=== PATIENT | female | born 1985 | race Caucasian/White ===

== ENCOUNTER 2023-03-08 16:20 | Outpatient (CLI) | payer OTHER, SELFPAY ==
[2023-03-08] VITALS (14 sets, daily range): BP systolic 134–202; BP diastolic 80–123; PULSE 75–95; RESP 16–18; BMI 42.5
--- NOTE | 2023-03-08 16:34 | USR_ITS ---
PROCEDURE INFORMATION: Exam: US Biophysical Profile Without Non-Stress Test Exam date and time: 03/08/2023 4:48 PM Age: 37 years old Clinical indication: Condition or disease; Other: Maternal HTN; ; Additional info: Hypertension, diabetes, and ama TECHNIQUE: Imaging protocol: US biophysical profile without non-stress testing. COMPARISON: No relevant prior studies available. FINDINGS: heart rate: 133 bpm Amniotic fluid index: VALENTINA is 14.73 cm. BIOPHYSICAL PROFILE: breathing movement (BPP): 2 out of 2. body movement (BPP): 2 out of 2. tone (BPP): 2 out of 2. Amniotic fluid (BPP): 2 out of 2. MATERNAL ANATOMY: Cervix: Cervical length measures 3.49 cm. US/US OB BPP wo NST 23392 IMPRESSION: Biophysical profile total is 8 out of 8
[2023-03-08] MEDS: NIFEdipine 10 mg Capsule PO (17:51)
[2023-03-08 17:54] LABS: Protein Urine Trace (Negative); Specific Gravity, Urine 1.025 (1.005-1.030); Urine Appearance Clear (CLEAR); Urine Color Yellow (Yellow); pH Urine 6.5 (5-7)
[2023-03-08 17:54] LABS: Basophils # 0.1 10^3/uL (0.0-0.1); Basophils % 0.6 %; Eosinophils # 0.1 10^3/uL (0.0-0.8); Eosinophils % 1.4 %; Hematocrit 38.9 % (36-47); Lymphocytes # 2.2 10^3/uL (0.8-4.8); Lymphocytes % 22.2 %; Mean Corpuscular HGB Conc 33.2 g/dL (30-55); Mean Corpuscular Hemoglobin 30.2 pg (27-33); Mean Corpuscular Volume 91.1 fl (85-98); Mean Platelet Volume 10.1 fL (7.4-10.4); Monocytes # 0.8 10^3/uL (0.2-0.9); Monocytes % 7.9 %; Neutrophils % 67.4 %; Nucleated Red Blood Cells % 0 %; Platelet Count 362 10^3/cmm (157-399); Red Blood Count 4.27 10^6/uL (3.85-5.65); Red Cell Distribution Width 14.3 % (12.1-15.1); White Blood Count 9.95 10^3/uL (3.29-11.43)
[2023-03-08 17:55] LABS: Add Urine Microscopic? YES; Bilirubin Urine Neg (Negative); Blood Urine Neg (Negative); Glucose Urine UA Norm (Normal); Ketones Urine Negative (Negative); Leukocyte Esterase Urine Negative (Negative); Nitrate Urine Negative (Negative); Urobilinogen Urine Norm (Negative)
[2023-03-08 18:04] LABS: Add Urine Culture? No; Amorphous Sediment Urine TRACE /hpf; Bacteria Urine TRACE /hpf; Fine Granular Casts Urine 0-4 /lpf; Hyaline Casts Urine 0-4 /lpf; Mucus Urine 1+ /hpf; RBC Urine RARE /hpf (0-2); Squamous Epithelial Cell Urine 0-4 /hpf (0-5); Transitional Epi Cells Urine 0-4 /hpf; WBC Urine 0-4 /hpf (0-5)
[2023-03-08 18:13] LABS: Alanine Aminotransferase 33 U/L (0-33); Albumin Level 3.5 g/dL (3.5-5.2); Alkaline Phosphatase 257 U/L (35-105); Anion Gap 15.3 (5-19); Aspartate Amino Transferase 28 U/L (0-32); Blood Urea Nitrogen 12 mg/dL (6-20); Calcium 11.2 mg/dL (8.5-10.5); Carbon Dioxide 21 mmol/L (22-29); Chloride 104 mmol/L (98-107); Globulin 3.2 g/dL (1.3-4.6); Glomerular Filtration Rate 138.1 mL/min (90-130); Glucose 73 mg/dL (65-115); Osmolality Calculated 280 mOsm/kg (285-295); Potassium 4.3 mmol/L (3.5-5.1); Sodium 136 mmol/L (136-145); Total Bilirubin 0.2 mg/dL (0.15-1.2); Total Protein 6.7 g/dL (6.6-8.7); Uric Acid 5.8 mg/dL (2.4-5.7)
[2023-03-08 18:14] LABS: UPRO/UCREAT Ratio 0.17 mg/mg CR; Urine Creatinine 120 mg/dL (28-217); Urine Protein Random 20 mg/dL
[2023-03-08] MEDS: NIFEdipine 10 mg Capsule 20 MG PO (18:37)
[2023-03-08] MEDS: labetalol 200 mg Tablet 300 MG PO (20:15)
== END 2023-03-08 20:22 | disposition home or self-care (01) ==
LOC: OPOB 16:27 → OBGYN 16:28
PROVIDERS: Family Provider Family Medicine; Visit Provider Family Medicine
DX: O16.9 Unspecified maternal hypertension, unspecified trimester (principal); O24.419 Gestational diabetes mellitus in pregnancy, unspecified control; O09.529 Supervision of elderly multigravida, unspecified trimester; Z3A.00 Weeks of gestation of pregnancy not specified
CPT/HCPCS: 36415; 59025; 76819; 80053; 81001; 82570; 84156; 84550; 85025; 99211

== ENCOUNTER 2023-03-20 16:40 | Outpatient (CLI) | payer OTHER, SELFPAY ==
[2023-03-20 16:40] VITALS: BMI 44.2
[2023-03-20 16:54] VITALS: BP 182/105; PULSE 84
[2023-03-20 17:07] VITALS: BP 172/113; PULSE 79
[2023-03-20 17:16] VITALS: BP 174/115; PULSE 80
[2023-03-20 17:37] VITALS: BP 158/96; PULSE 76
[2023-03-20 17:51] VITALS: BP 159/98; PULSE 78
[2023-03-20 18:00] LABS: Urine Creatinine 103 mg/dL (28-217)
[2023-03-20 18:03] LABS: Urine Protein Random 21 mg/dL
[2023-03-20 18:19] VITALS: BP 159/98; PULSE 78
== END 2023-03-20 18:20 | disposition home or self-care (01) ==
LOC: OPOB 16:45 → OBGYN 16:45
PROVIDERS: Absent Provider Family Medicine; Family Provider Family Medicine; Visit Provider Family Medicine
DX: O16.9 Unspecified maternal hypertension, unspecified trimester (principal); O24.419 Gestational diabetes mellitus in pregnancy, unspecified control; Z3A.00 Weeks of gestation of pregnancy not specified
CPT/HCPCS: 59025; 82570; 84156; 99211

== ENCOUNTER 2023-04-01 16:26 | Outpatient (CLI) | payer MEDICAID, SELFPAY ==
[2023-04-01] VITALS (34 sets, daily range): BP systolic 141–194; BP diastolic 85–118; PULSE 76–95; RESP 16; TEMP 36.2; O2SAT 96–98; BMI 44.1
[2023-04-01 17:02] LABS: Basophils # 0.1 10^3/uL (0.0-0.1); Basophils % 0.7 %; Eosinophils # 0.2 10^3/uL (0.0-0.8); Eosinophils % 2.1 %; Hematocrit 38.4 % (36-47); Lymphocytes # 1.9 10^3/uL (0.8-4.8); Lymphocytes % 20.8 %; Mean Corpuscular HGB Conc 33.6 g/dL (30-55); Mean Corpuscular Hemoglobin 30.8 pg (27-33); Mean Corpuscular Volume 91.6 fl (85-98); Mean Platelet Volume 10.4 fL (7.4-10.4); Monocytes # 0.8 10^3/uL (0.2-0.9); Monocytes % 8.6 %; Neutrophils # 6.12 10^3/uL (1.8-7.7); Neutrophils % 67.4 %; Nucleated Red Blood Cells % 0 %; Platelet Count 295 10^3/cmm (157-399); Red Blood Count 4.19 10^6/uL (3.85-5.65); Red Cell Distribution Width 14.6 % (12.1-15.1); White Blood Count 9.08 10^3/uL (3.29-11.43)
[2023-04-01] MEDS: NIFEdipine 10 mg Capsule PO ×3 (17:05→18:49)
[2023-04-01 17:10] LABS: Urine Appearance Clear (CLEAR); Urine Color Yellow (Yellow); pH Urine 6 (5-7)
[2023-04-01 17:11] LABS: Add Urine Culture? No; Bacteria Urine TRACE /hpf; Bilirubin Urine Neg (Negative); Blood Urine Neg (Negative); Glucose Urine UA Norm (Normal); Ketones Urine 1+ (Negative); Leukocyte Esterase Urine Negative (Negative); Nitrate Urine Negative (Negative); Protein Urine 1+ (Negative); Squamous Epithelial Cell Urine RARE /hpf (0-5); Urobilinogen Urine Norm (Negative); WBC Urine 0-4 /hpf (0-5)
[2023-04-01 17:15] LABS: Chloride 106 mmol/L (98-107); Potassium 4.7 mmol/L (3.5-5.1); Sodium 136 mmol/L (136-145)
[2023-04-01 17:25] LABS: Urine Creatinine 113 mg/dL (28-217)
[2023-04-01 17:26] LABS: UPRO/UCREAT Ratio 0.52 mg/mg CR; Urine Protein Random 59 mg/dL
[2023-04-01 17:31] LABS: Alanine Aminotransferase 29 U/L (0-33); Albumin Level 3.2 g/dL (3.5-5.2); Alkaline Phosphatase 359 U/L (35-105); Uric Acid 6.3 mg/dL (2.4-5.7)
[2023-04-01 17:44] LABS: Anion Gap 16.7 (5-19); Aspartate Amino Transferase 26 U/L (0-32); Blood Urea Nitrogen 14 mg/dL (6-20); Carbon Dioxide 18 mmol/L (22-29); Globulin 3.1 g/dL (1.3-4.6); Glomerular Filtration Rate 138.1 mL/min (90-130); Glucose 87 mg/dL (65-115); Osmolality Calculated 282 mOsm/kg (285-295); Total Bilirubin 0.2 mg/dL (0.15-1.2); Total Protein 6.3 g/dL (6.6-8.7)
[2023-04-01] MEDS: labetalol 5 mg/mL SDV 20mL 20 MG IVP (19:31)
[2023-04-01] MEDS: labetalol 200 mg Tablet 300 MG PO (20:34)
[2023-04-01] MEDS: acetaminophen 500 mg Tablet 1000 MG PO (20:34)
--- NOTE | 2023-04-01 21:01 | PM.OBGYDC ---
Discharge Providers PEDIATRIC ASSOCIATE Date of Discharge: 04/01/23 Attending Provider at Discharge: Otto Alcaraz MD Primary Care Provider: JARAD Provider Diagnoses at Discharge Discharge Diagnosis (1) Chronic hypertension affecting : Status: Acute (2) Pre-existing diabetes mellitus affecting in third trimester, antepartum: Status: Acute (3) Pre-eclampsia added to pre-existing hypertension: Status: Acute Reason for Visit Reason for Visit: High Blood Pressure Hospital Course Hospital Course This is a 38-year-old G3, P1 presents at 36 weeks 2 days with elevated blood pressure. Patient had blood pressure in the severe range on arrival. Patient denies any symptoms at that time. Initial heart tones were category 1. Patient has known chronic hypertension as well as pre-existing type 2 diabetes. Patient's blood sugars have been well-controlled. Pressures have been within the normal range until this evening. Lab work was obtained and was unremarkable except for an elevation in her protein. Patient was given 2 doses of Procardia and 1 dose of labetalol for her blood pressure was back within normal range. The patient was given 400 mg of labetalol which is an increase from her normal of 300mg twice daily. Discussed diagnosis of superimposed preeclampsia on chronic hypertension and when to seek care. We moved her date to April 06 at 7 AM. Physical Exam Const: COMMON NORMALS: no acute distress and alert HENMT: COMMON NORMALS: normocephalic and moist oral mucous membranes HEAD & SCALP: normocephalic Neck/C-Spine: COMMON NORMALS: full ROM, supple and no JVD Resp: COMMON NORMALS: normal respiratory effort Cardio: COMMON NORMALS: no JVD, regular rate and regular rhythm RATE: regular rate RHYTHM: regular rhythm Extremity: COMMON NORMALS: normal to inspection and no clubbing, cyanosis or edema Neuro: SENSORIUM/ORIENTATION: Yes alert Psych: COMMON NORMALS: mental status grossly normal and cooperative History History History 3 Term 1 0 Miscarriages/Ectopic 1 Living Children 1 Discharge Data Studies Completed and Pending Laboratory Results WBC 9.08 10^3/uL (3.29-11.43) 04/01/23 16:54 RBC 4.19 10^6/uL (3.85-5.65) 04/01/23 16:54 Hgb 12.90 g/dL (11.27-16.99) 04/01/23 16:54 Hct 38.4 % (36-47) 04/01/23 16:54 MCV 91.6 fl (85-98) 04/01/23 16:54 MCH 30.8 pg (27-33) 04/01/23 16:54 MCHC 33.6 g/dL (30-55) 04/01/23 16:54 RDW 14.6 % (12.1-15.1) 04/01/23 16:54 Plt Count 295 10^3/cmm (157-399) 04/01/23 16:54 MPV 10.4 fL (7.4-10.4) 04/01/23 16:54 Neut % (Auto) 67.4 % 04/01/23 16:54 Lymph % (Auto) 20.8 % 04/01/23 16:54 Anderson % (Auto) 8.6 % 04/01/23 16:54 Eos % (Auto) 2.1 % 04/01/23 16:54 Baso % (Auto) 0.7 % 04/01/23 16:54 Neut # (Auto) 6.12 10^3/uL (1.8-7.7) 04/01/23 16:54 Lymph # (Auto) 1.9 10^3/uL (0.8-4.8) 04/01/23 16:54 Anderson # (Auto) 0.8 10^3/uL (0.2-0.9) 04/01/23 16:54 Eos # (Auto) 0.2 10^3/uL (0.0-0.8) 04/01/23 16:54 Baso # (Auto) 0.1 10^3/uL (0.0-0.1) 04/01/23 16:54 Nucleated RBC % (auto) 0 % 04/01/23 16:54 Nucleated RBCs # 0.0 /100WBC 04/01/23 16:54 Sodium 136 mmol/L (136-145) 04/01/23 16:54 Potassium 4.7 mmol/L (3.5-5.1) 04/01/23 16:54 Chloride 106 mmol/L (98-107) 04/01/23 16:54 Carbon Dioxide 18 mmol/L (22-29) L 04/01/23 16:54 Anion Gap 16.7 (5-19) 04/01/23 16:54 BUN 14 mg/dL (6-20) 04/01/23 16:54 Creatinine 0.5 mg/dL (0.5-0.9) 04/01/23 16:54 GFR Calculation 138.1 mL/min (90-130) H 04/01/23 16:54 Glucose 87 mg/dL (65-115) 04/01/23 16:54 Calculated Osmolality 282 mOsm/kg (285-295) L 04/01/23 16:54 Uric Acid 6.3 mg/dL (2.4-5.7) H 04/01/23 16:54 Calcium 9.0 mg/dL (8.5-10.5) 04/01/23 16:54 Total Bilirubin 0.2 mg/dL (0.15-1.2) 04/01/23 16:54 AST 26 U/L (0-32) 04/01/23 16:54 ALT 29 U/L (0-33) 04/01/23 16:54 Alkaline Phosphatase 359 U/L (35-105) H 04/01/23 16:54 Total Protein 6.3 g/dL (6.6-8.7) L 04/01/23 16:54 Albumin 3.2 g/dL (3.5-5.2) L 04/01/23 16:54 Globulin 3.1 g/dL (1.3-4.6) 04/01/23 16:54 Urine Color Yellow (Yellow) 04/01/23 16:54 Urine Appearance Clear (CLEAR) 04/01/23 16:54 Urine pH 6 (5-7) 04/01/23 16:54 Ur Specific [place] 1.020 (1.005-1.030) 04/01/23 16:54 Urine Protein 1+ (Negative) H 04/01/23 16:54 Urine Glucose (UA) Norm (Normal) 04/01/23 16:54 Urine Ketones 1+ (Negative) H 04/01/23 16:54 Urine Blood Neg (Negative) 04/01/23 16:54 Urine Nitrate Negative (Negative) 04/01/23 16:54 Urine Bilirubin Neg (Negative) 04/01/23 16:54 Urine Urobilinogen Norm mg/dL (Negative) 04/01/23 16:54 Ur Leukocyte Esterase Negative (Negative) 04/01/23 16:54 Urine RBC None /hpf (0-2) 04/01/23 16:54 Urine WBC 0-4 /hpf (0-5) H 04/01/23 16:54 Ur Squamous Epith Cells Rare /hpf (0-5) 04/01/23 16:54 Amorphous Sediment Not Reportable 04/01/23 16:54 Urine Bacteria Trace /hpf (NONE) 04/01/23 16:54 U Random Total Protein 59 mg/dL 04/01/23 16:54 Urine Creatinine 113 mg/dL (28-217) 04/01/23 16:54 Protein/Creatinin Ratio 0.52 mg/mg CR 04/01/23 16:54 Vitals Last Vital Signs Pulse 94 04/01/23 20:57 BP 152/100 04/01/23 20:57 Pulse Ox 97 04/01/23 20:18 O2 Del Method Room Air 04/01/23 20:05 Results Labs OB ([facility]): Obstetrics US/Biophysical Profile 03/08/23 Hct 38.4 % (36-47) 04/01/23 Hgb 12.90 g/dL (11.27-16.99) 04/01/23 Plt Count 295 10^3/cmm (157-399) 04/01/23 Uric Acid 6.3 mg/dL (2.4-5.7) H 04/01/23 Discharge Plan Discharge Patient Disposition: Home Prescriptions: No Action metformin 500 mg Tablet glyburide 5 mg Tablet labetalol 100 mg Tablet 300 mg PO BID escitalopram oxalate [Lexapro] 10 mg Tablet 10 mg PO DAILY Discharge Orders: Discharge Order (Routine); Ordered 04/01/23 Ordered By: Otto Alcaraz Diet: Usual diet Activity: Limit activity as instructed Patient Instructions: Preeclampsia During (IP), OB Undelivered Discharge Activity Restrictions/Additional Instructions: 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 Alcaraz will be sending a new prescription. Discharge Attestations PEDIATRIC ASSOCIATE Time Spent in Discharge Care*: less than 30 min Coding Level of Care Code Acute Code for Chg Fwd Diagnoses Chronic hypertension affecting O10.919 Pre-existing diabetes mellitus affecting in third trimester, antepartum O24.313 Pre-eclampsia added to pre-existing hypertension O11.9
[2023-04-01] MEDS: labetalol 200 mg Tablet 100 MG PO (21:26)
--- NOTE | 2023-04-06 06:35 | P.HP_ITS ---
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 Patient does have chronic hypertension with pre-existing type 2 diabetes. Patient was diagnosed with preeclampsia. Upon arrival the patient has had 2 severe blood pressures. Patient's blood sugars have been fairly well-controlled throughout her . Patient has had difficulty with blood pressure management and has been on labetalol throughout her as well as amlodipine. Patient's dose of labetalol has been increased throughout her . Patient had severe blood pressures earlier this week but was able to get under control with medications. Patient has had BPP and NST since 32 weeks and they have all been reassuring. Patient has seen MFM throughout her . Patient has no concerns today. Present Details : 3 Para: 1 care: good care Obstetrical complications: preeclampsia and other (Chronic hypertension and pre- existing type 2 diabetes) Labs Blood type OB HPI: O (+) positive Rubella: Immune RPR: Negative GBS: Unknown HBsAG: Negative Specific History Indications for Section: Preeclampsia and Repeat Review of Systems 2 General: Reports: 10 or more systems reviewed and unremarkable except in HPI and below Medications/Allergies Home Medications Medication Instructions Recorded Confirmed Last Taken Type 03/20/23 04/05/23 History escitalopram oxalate 10 mg tablet 10 mg PO DAILY 03/20/23 04/06/23 04/05/23 History (Lexapro) 0800 glyburide 5 mg tablet 5 mg PO 1XD 03/20/23 04/06/23 04/05/23 History labetalol 100 mg tablet 300 mg PO BID 03/20/23 04/06/23 04/05/23 History metformin 500 mg tablet 500 mg PO 1XD 03/20/23 04/06/23 04/05/23 History Allergies Allergy/AdvReac Type Severity Reaction Status Date / Time No Known Allergies Allergy Verified 03/20/23 17:01 History History History 2 3 Term 1 0 Miscarriages/Ectopic 1 Living Children 1 Vitals/I&O/Wt Last Vital Signs Temp 97.2 F L 04/01/23 21:29 Pulse 93 04/01/23 21:29 Resp 16 04/01/23 21:29 BP 141/85 04/01/23 21:29 Pulse Ox 97 04/01/23 20:18 O2 Del Method Room Air 04/01/23 20:05 Physical Exam 2 Const: COMMON NORMALS: no acute distress and alert HENMT: COMMON NORMALS: normocephalic and moist oral mucous membranes HEAD & SCALP: normocephalic Neck/C-Spine: COMMON NORMALS: full ROM, supple and no JVD Resp: COMMON NORMALS: normal respiratory effort Cardio: COMMON NORMALS: no JVD, regular rate and regular rhythm RATE: r egular rate RHYTHM: regular rhythm Extremity: COMMON NORMALS: normal to inspection and no clubbing, cyanosis or edema Neuro: SENSORIUM/ORIENTATION: Yes alert Psych: COMMON NORMALS: mental status grossly normal and cooperative Data 04/01/23 16:54 04/01/23 16:54 Results Labs OB ([facility]): 2 Obstetrics US/Biophysical Profile Blood Type O Positive 04/06/23 Antibody Screen Negative 04/06/23 Hct 40.1 % (36-47) 04/06/23 Hgb 13.40 g/dL (11.27-16.99) 04/06/23 Rho(D) Type Rh positive 04/06/23 Plt Count 309 10^3/cmm (157-399) 04/06/23 Uric Acid 6.3 mg/dL (2.4-5.7) H 04/01/23 A&P Assessment and plan (1) Pre-existing diabetes mellitus affecting in third trimester, antepartum: (2) Chronic hypertension affecting : (3) Pre-eclampsia added to pre-existing hypertension: The patient is having severe blood pressures. Given the blood pressures previously in these days are greater than 4 hours apart puts them in the severe range. We will need to start magnesium and start labetalol protocol. Plan on proceeding with repeat low-transverse today. We will have peds attend delivery. (4) 37 weeks gestation of : Attestations 2 Medical Necessity Statement*: Admit for repeat low-transverse for preeclampsia with severe features, chronic hypertension, and type 2 diabetes. Anticipate greater than 2 midnight stay. Coding Level of Care Code Acute Code for Chg Fwd Diagnoses Pre-existing diabetes mellitus affecting in third trimester, antepartum O24.313 Chronic hypertension affecting O10.919 Pre-eclampsia added to pre-existing hypertension O11.9 37 weeks gestation of Z3A.37
== END 2023-04-01 21:38 | disposition home or self-care (01) ==
LOC: OPOB 16:26 → OBGYN 16:28
PROVIDERS: Family Provider Family Medicine; Visit Provider Family Medicine
DX: O10.919 Unspecified pre-existing hypertension complicating pregnancy, unspecified trimester (principal); O24.313 Unspecified pre-existing diabetes mellitus in pregnancy, third trimester; O11.9 Pre-existing hypertension with pre-eclampsia, unspecified trimester; Z3A.00 Weeks of gestation of pregnancy not specified
CPT/HCPCS: 36415; 59025; 80053; 81001; 82570; 84156; 84550; 85025; 99211; J3490

== ENCOUNTER 2023-04-06 05:18 | Inpatient (IN) | payer MEDICAID, SELFPAY ==
[2023-04-06] VITALS (83 sets, daily range): BP systolic 129–182; BP diastolic 77–119; PULSE 37–88; RESP 16–17; TEMP 35.7–36.4; O2SAT 95–98; BMI 42.9
[2023-04-06 05:48] LABS: Basophils # 0.1 10^3/uL (0.0-0.1); Basophils % 1.1 %; Eosinophils # 0.2 10^3/uL (0.0-0.8); Eosinophils % 2.1 %; Hematocrit 40.1 % (36-47); Lymphocytes # 2.2 10^3/uL (0.8-4.8); Lymphocytes % 29.8 %; Mean Corpuscular HGB Conc 33.4 g/dL (30-55); Mean Corpuscular Hemoglobin 30.5 pg (27-33); Mean Corpuscular Volume 91.3 fl (85-98); Mean Platelet Volume 10.3 fL (7.4-10.4); Monocytes # 0.6 10^3/uL (0.2-0.9); Monocytes % 8.3 %; Neutrophils # 4.22 10^3/uL (1.8-7.7); Neutrophils % 58.3 %; Nucleated Red Blood Cells % 0 %; Platelet Count 309 10^3/cmm (157-399); Red Blood Count 4.39 10^6/uL (3.85-5.65); Red Cell Distribution Width 14.2 % (12.1-15.1); White Blood Count 7.24 10^3/uL (3.29-11.43)
[2023-04-06 06:27] LABS: Add Urine Culture? No; Add Urine Microscopic? YES; Bacteria Urine 2+ /hpf; Bilirubin Urine Neg (Negative); Blood Urine Neg (Negative); Glucose Urine UA Norm (Normal); Ketones Urine Negative (Negative); Leukocyte Esterase Urine Negative (Negative); Mucus Urine 1+ /hpf; Nitrate Urine Negative (Negative); Protein Urine 2+ (Negative); Urine Appearance Clear (CLEAR); Urine Color Yellow (Yellow); Urobilinogen Urine Neg (Negative); WBC Urine 0-4 /hpf (0-5); pH Urine 6 (5-7)
[2023-04-06] MEDS: dextrose 5%-lactated ringers 1,000 ML 75 ML IV ×2 (06:30→23:18)
[2023-04-06] MEDS: magnesium sulfate premix 4 GM/100 ML PREMIX IV (06:34)
[2023-04-06] MEDS: magnesium sulfate premix 20 GM/500 ML BAG IV ×2 (06:55→16:09)
--- NOTE | 2023-04-06 07:02 | ANES.PREANE2 ---
Pre-Anesthetic Assessment Height/Weight: Height 1.6 m Weight 109.996 kg Temp Pulse Resp BP O2 Del Method 97.3 F L 88 17 181/105 Room Air 04/06/23 06:45 04/06/23 06:58 04/06/23 05:25 04/06/23 06:58 04/06/23 05:25 Preop Diagnosis: Pre-eclamptic, prior Operation Date: 04/06/23 07:00 Proposed Procedures p Section Repeat(Not Applicable) - Otto Alcaraz MD Was Beta Marce taken within 24 hours: Yes Was Clonidine taken within 24 hours: N/A Last intake: Intake Last Liquid Date 04/05/23 Last Liquid Time 21:00 Last Solid Date 04/05/23 Last Solid Time 20:00 Social No alcohol and No tobacco Exam alert, oriented x 3, clear to auscultation bilaterally and regular rate & rhythm Airway Submandibular: within normal limits Cervical ROM: within normal limits Mallampati: Class II Dentition: full History/ROS No significant history except as noted and No significant complaints CV/HEM Hypertension Pre-eclamptic. Mg++ started None reported Hepatic None reported GI Gastroesophageal Reflux Disease Metabolic Diabetes Mellitus and Morbid Obesity [facility] None reported Neuropsych None reported Anesthetic Plan ASA status: 3 Anesthesia: Anesthesia Evaluation and Regional (specify below) Risk of > 500 ml blood loss (7ml/kg in children): No Medications/Allergies Home Medications Medication Instructions Recorded Confirmed Last Taken Type 03/20/23 04/05/23 History escitalopram oxalate 10 mg tablet 10 mg PO DAILY 03/20/23 04/06/23 04/05/23 History (Lexapro) 0800 glyburide 5 mg tablet 5 mg PO 1XD 03/20/23 04/06/23 04/05/23 History labetalol 100 mg tablet 300 mg PO BID 03/20/23 04/06/23 04/05/23 History metformin 500 mg tablet 500 mg PO 1XD 03/20/23 04/06/23 04/05/23 History Allergies Allergy/AdvReac Type Severity Reaction Status Date / Time No Known Allergies Allergy Verified 03/20/23 17:01 Current Medications Generic Name Dose Route Start Last Admin Trade Name Freq PRN Reason Stop Dose Admin Magnesium Sulfate 20 gm in 500 mls @ 50 mls/hr 04/06/23 06:15 04/06/23 06:55 Magnesium Sulfate Premix IV 50 mls/hr .Q10H JENNIFER Administration PFSH Anesthesia Female Reproductive History : 3 Data Anesthesia 04/06/23 05:35 04/06/23 06:14 Short CBC 04/06/23 Range/Units 05:35 WBC 7.24 (3.29-11.43) 10^3/uL Hgb 13.40 (11.27-16.99) g/dL Hct 40.1 (36-47) % MCV 91.3 (85-98) fl Plt Count 309 (157-399) 10^3/cmm Neut % (Auto) 58.3 % Neut # (Auto) 4.22 (1.8-7.7) 10^3/uL Urine 04/06/23 Range/Units 05:20 Urine Color Yellow (Yellow) Urine Appearance Clear (CLEAR) Urine pH 6 (5-7) Ur Specific [place] 1.020 (1.005-1.030) Urine Protein 2+ H (Negative) Urine Glucose (UA) Norm (Normal) Urine Ketones Negative (Negative) Urine Nitrate Negative (Negative) Urine Bilirubin Neg (Negative) Ur Leukocyte Esterase Negative (Negative) Urine RBC None (0-2) /hpf Urine WBC 0-4 H (0-5) /hpf Blood Bank 04/06/23 05:35 Blood Type O Positive Rho(D) Type Rh positive Antibody Screen Negative Cardiac Studies: No Data to Display
[2023-04-06] MEDS: labetalol 5 mg/mL SDV 20mL 20 MG IVP ×3 (07:03→17:21)
[2023-04-06] MEDS: famotidine 20 mg/2 mL INJ IVP (07:10)
[2023-04-06] MEDS: metoclopramide 5 mg/mL SDV 2 mL 10 MG IVP (07:10)
[2023-04-06] MEDS: citric acid-sodium citrate 30 mL UDC PO (07:11)
[2023-04-06 07:15] LABS: Alanine Aminotransferase 29 U/L (0-33); Albumin Level 3.3 g/dL (3.5-5.2); Alkaline Phosphatase 392 U/L (35-105); Anion Gap 17.3 (5-19); Aspartate Amino Transferase 26 U/L (0-32); Blood Urea Nitrogen 16 mg/dL (6-20); Calcium 8.9 mg/dL (8.5-10.5); Carbon Dioxide 18 mmol/L (22-29); Chloride 106 mmol/L (98-107); Creatinine Clr Calc Pharmacy 151.4007; Glomerular Filtration Rate 111.9 mL/min (90-130); Glucose 75 mg/dL (65-115); Osmolality Calculated 284 mOsm/kg (285-295); Potassium 4.3 mmol/L (3.5-5.1); Sodium 137 mmol/L (136-145); Total Bilirubin 0.2 mg/dL (0.15-1.2); Total Protein 6.3 g/dL (6.6-8.7); Uric Acid 7.5 mg/dL (2.4-5.7)
[2023-04-06 07:25] LABS: Magnesium Level (OB Only) 1.6 mg/dL (5.0-7.5)
--- NOTE | 2023-04-06 08:32 | PC.NURSE ---
In OR during
--- NOTE | 2023-04-06 09:03 | P.OP_ITS ---
Operative Report Date of procedure: April 06, 2023 Post-op diagnosis: Preeclampsia superimposed on chronic hypertension, type 2 diabetes Post-op findings: Same, viable infant male Procedure done: Repeat low-transverse Surgeon: Otto Alcaraz MD Estimated blood loss (mL): 100 Urine output: 200 Complications: None Brief History: This is a 37-year-old G3, P2 presents at 37 weeks for repeat low-transverse C- section due to pre-existing type 2 diabetes and preeclampsia to pre-existing hypertension. Procedure: Patient was taken to the operating room where epidural anesthesia was found to be adequate. She was prepped and draped in the normal sterile fashion in a dorsal supine position with a leftward tilt. Skin incision was made with scalpel and carried out to the underlying layer of fascia which was incised in the midline. Fascial incision was then extended laterally with Cr scissors bilaterally. The superior aspect of the fascial incision was grasped with Edgard clamps elevated and dissected off the rectus muscles with Cr's. The inferior aspect of the fascial incision was grasped with [place]'s and in likewise manner was elevated and dissected off with Cr's. Peritoneum was then entered digitally and extended with good visualization of the bladder. Bladder blade was then inserted. Uterine incision was then created in a transverse fashion in the lower uterine segment with scalpel and extended digitally. Amniotic sac was a round with Allis clamp. Clear fluid noted. Infant's head was delivered atraumatically nose and mouth suctioned with bulb, cord clamped and cut and handed off to waiting nursing staff. The placenta was then expressed and uterus exteriorized from the abdomen. And cleared of all clots and debris. Uterine incision was then repaired in a running locked fashion with 0 Vicryl. A second suture of the same was then used to imbricate the incision. Excellent hemostasis was noted. Uterus was then returned to the abdomen, gutters were cleared of all clots and debris and wound was irrigated. Peritoneum was then closed in a running fashion with 3-0 Vicryl. Fascia was then closed with 0 Vicryl in a running fashion. Subcutaneous tissue was closed with 2-0 Vicryl and skin was closed with 4-0 Monocryl on a Ronni needle. The incision was reinforced with Steri-Strips and pressure bandage was over the wound. Sponge, laps, and needle count was correct x2. 2 g Ancef was given prior to the procedure. Patient was taken recovery in stable condition.
[2023-04-06] MEDS: labetalol 5 mg/mL SDV 20mL 40 MG IVP ×2 (10:22→17:53)
[2023-04-06 10:27] LABS: Glucose Point of Care 88 mg/dL (70-110)
[2023-04-06] MEDS: hyDROXYzine 25 mg Capsule 50 MG PO (14:47)
[2023-04-06] MEDS: ketorolac 30 mg/mL INJ IVP (14:49)
[2023-04-06 17:07] LABS: Magnesium Level (OB Only) 5.6 mg/dL (5.0-7.5)
[2023-04-06] MEDS: docusate sodium 100 mg Capsule PO (18:39)
[2023-04-06 19:54] LABS: Glucose Point of Care 86 mg/dL (70-110)
[2023-04-06] MEDS: NIFEdipine ER (24 hr) 30 mg Tablet PO (21:58)
[2023-04-06 23:01] LABS: Basophils # 0.1 10^3/uL (0.0-0.1); Basophils % 0.9 %; Eosinophils # 0.2 10^3/uL (0.0-0.8); Eosinophils % 1.9 %; Hematocrit 36.3 % (36-47); Lymphocytes # 2.4 10^3/uL (0.8-4.8); Lymphocytes % 27.6 %; Mean Corpuscular HGB Conc 32.8 g/dL (30-55); Mean Corpuscular Hemoglobin 30.1 pg (27-33); Mean Corpuscular Volume 91.9 fl (85-98); Mean Platelet Volume 10.4 fL (7.4-10.4); Monocytes # 0.7 10^3/uL (0.2-0.9); Monocytes % 7.8 %; Neutrophils # 5.43 10^3/uL (1.8-7.7); Neutrophils % 61.5 %; Nucleated Red Blood Cells % 0 %; Platelet Count 266 10^3/cmm (157-399); Red Blood Count 3.95 10^6/uL (3.85-5.65); Red Cell Distribution Width 14.6 % (12.1-15.1); White Blood Count 8.84 10^3/uL (3.29-11.43)
[2023-04-06 23:03] LABS: Mean Corpuscular HGB Conc 33.3 g/dL (30-55); Mean Corpuscular Hemoglobin 30.7 pg (27-33); Mean Corpuscular Volume 92.1 fl (85-98); Mean Platelet Volume 10.4 fL (7.4-10.4); Platelet Count 262 10^3/cmm (157-399); Red Blood Count 3.91 10^6/uL (3.85-5.65); Red Cell Distribution Width 14.6 % (12.1-15.1); White Blood Count 8.55 10^3/uL (3.29-11.43)
[2023-04-06 23:15] LABS: Alanine Aminotransferase 22 U/L (0-33); Albumin Level 2.9 g/dL (3.5-5.2); Alkaline Phosphatase 315 U/L (35-105); Anion Gap 12.4 (5-19); Aspartate Amino Transferase 26 U/L (0-32); Blood Urea Nitrogen 12 mg/dL (6-20); Calcium 7.2 mg/dL (8.5-10.5); Carbon Dioxide 22 mmol/L (22-29); Chloride 99 mmol/L (98-107); Creatinine Clr Calc Pharmacy 151.4007; Globulin 2.7 g/dL (1.3-4.6); Glomerular Filtration Rate 111.9 mL/min (90-130); Glucose 96 mg/dL (65-115); Osmolality Calculated 268 mOsm/kg (285-295); Potassium 4.4 mmol/L (3.5-5.1); Sodium 129 mmol/L (136-145); Total Bilirubin 0.2 mg/dL (0.15-1.2); Total Protein 5.6 g/dL (6.6-8.7)
[2023-04-06 23:28] LABS: Magnesium Level (OB Only) 5.7 mg/dL (5.0-7.5)
[2023-04-06] MEDS: acetaminophen 325 mg Tablet 650 MG PO (23:59)
[2023-04-06] MEDS: hyDRALAzine 20 mg/mL INJ 1 mL 5 MG IVP (23:59)
[2023-04-07] VITALS (44 sets, daily range): BP systolic 125–183; BP diastolic 74–105; PULSE 64–126; RESP 18; TEMP 35.6–36.6
[2023-04-07] MEDS: magnesium sulfate premix 20 GM/500 ML BAG IV (01:54)
[2023-04-07] MEDS: HYDROcodone-acetaminophen 5-325 mg Tablet PO ×2 (03:32→15:10)
[2023-04-07 03:51] LABS: Glucose Point of Care 114 mg/dL (70-110)
[2023-04-07] MEDS: hyDRALAzine 20 mg/mL INJ 1 mL 5 MG IVP (05:14)
[2023-04-07] MEDS: hyDRALAzine 20 mg/mL INJ 1 mL 10 MG IVP (05:52)
[2023-04-07 07:15] LABS: Magnesium Level (OB Only) 5.5 mg/dL (5.0-7.5)
[2023-04-07 08:00] LABS: Glucose Point of Care 153 mg/dL (70-110)
[2023-04-07] MEDS: ibuprofen 800 mg tablet PO ×3 (08:12→21:00)
[2023-04-07] MEDS: docusate sodium 100 mg Capsule PO ×2 (08:12→18:01)
[2023-04-07] MEDS: insulin lispro 100 unit/1 mL SUBCUT ×4 (08:12→21:11)
[2023-04-07] MEDS: NIFEdipine ER (24 hr) 30 mg Tablet PO (08:12)
[2023-04-07] MEDS: prenatal vitamin Capsule 1 CAP PO (08:12)
--- NOTE | 2023-04-07 08:18 | P.PN_ITS ---
METALLURGIST PROCESS Subjective 2 Subjective: Interval history: This is a 37-year-old that is post op day 1 after repeat low-transverse C- section. The patient has preeclampsia with severe features superimposed on to chronic hypertension and pre-existing type 2 diabetes. Blood sugars have been well-managed with current care glucose and sliding scale insulin. Patient has had multiple severe blood pressures over the last 24 hours requiring intervention. Initially the patient was placed on labetalol protocol but continued to have issues so it was transition to hydralazine and she had responded better to that medication. Patient continues to have brisk reflexes and obvious clonus. No evidence of seizures. Other vital signs have remained stable. Repeat lab work is within normal range and magnesium is at a therapeutic level. Initially patient's urine output was poor but this has significantly improved and she has diuresed well. Medications: Reviewed: Yes Labor: Amniotic Membrane Status: Intact Monitor Mode: External C ontraction Pattern: Regular Post /CS: Patient comments OB post-: pain well controlled, incisional pain and tolerating diet baby status: doing well and bottle feeding well feeding status: exclusively bottle feeding Vitals/I&O/Wt Last Vital Signs Temp 97.9 F 04/07/23 05:30 Pulse 85 04/07/23 08:11 Resp 16 04/06/23 09:15 BP 146/93 04/07/23 08:11 Pulse Ox 95 04/06/23 09:15 O2 Del Method Room Air 04/06/23 09:15 04/06/23 04/07/23 04/07/23 22:59 06:59 14:59 Intake Total 2841.667 / 2941.667 727.5 / 3669.167 Output Total 1008 / 2028 1835 / 3864 Balance 1832.667 / 912.667 -1107.5 / -194.833 Weight last 48 hrs Weight 109.996 kg Weight 109.996 kg Physical Exam 2 Const: COMMON NORMALS: no acute distress and alert HENMT: COMMON NORMALS: normocephalic and moist oral mucous membranes HEAD & SCALP: normocephalic Neck/C-Spine: COMMON NORMALS: full ROM, supple and no JVD Resp: COMMON NORMALS: normal respiratory effort Cardio: COMMON NORMALS: no JVD, regular rate and regular rhythm RATE: r egular rate RHYTHM: regular rhythm Extremity: COMMON NORMALS: normal to inspection and no clubbing, cyanosis or edema Neuro: COMMON NORMALS: moves all extremities SENSORIUM/ORIENTATION: Yes alert MOTOR EXAM: 5/5 motor strength present throughout and Motor abnormalities not present DEEP TENDON REFLEXES: Right ankle reflex intensity grade: 3+ and Left ankle reflex intensity grade: 3+ Psych: COMMON NORMALS: mental status grossly normal and cooperative Urinary Catheter Management: Hardy: Cath Placed During This Visit: yes Urinary Catheter Date of Insertion: 04/06/23 Urinary Catheter Time of Insertion: 06:30 Data 04/06/23 22:40 04/06/23 22:40 A&P Assessment and plan (1) Pre-eclampsia added to pre-existing hypertension: Patient's blood pressure has significantly improved. Will try coming off magnesium and monitor the patient. Patient was started on Procardia. (2) care following delivery: Continue care (3) Type 2 diabetes mellitus: Advance diet as tolerated. Continue routine blood glucose checks and sliding scale insulin. Attestations 2 Medical Necessity Statement*: Patient was admitted for repeat low-transverse due to severe preeclampsia on 2 pre-existing chronic hypertension. Anticipate greater than 2 midnight stay. Critical Care Time: Significant mount time was spent reviewing and monitoring patient's vitals and labs. Patient required multiple interventions for severe blood pressures due to severe eclampsia. Critical Care Time (min): 60 Coding Level of Care Code Acute Code for Chg Fwd Diagnoses Pre-eclampsia added to pre-existing hypertension O11.9 care following delivery Z39.2 Type 2 diabetes mellitus E11.9
[2023-04-07 12:15] LABS: Glucose Point of Care 225 mg/dL (70-110)
[2023-04-07 17:54] LABS: Glucose Point of Care 188 mg/dL (70-110)
[2023-04-07 21:09] LABS: Glucose Point of Care 190 mg/dL (70-110)
[2023-04-08] VITALS (11 sets, daily range): BP systolic 138–170; BP diastolic 80–107; PULSE 85–112; RESP 18; TEMP 35.7–36.7
--- NOTE | 2023-04-08 08:08 | PM.OBGYDC ---
Discharge Providers [employer] Date of Admission: 04/06/23 05:18 Date of Discharge: 04/08/23 Attending Provider at Admission: Otto Alcaraz MD Attending Provider at Discharge: Otto Alcaraz MD Diagnoses at Discharge Discharge Diagnosis (1) Pre-eclampsia added to pre-existing hypertension: Status: Acute (2) care following delivery: Status: Acute (3) Type 2 diabetes mellitus: Status: Acute Reason for Visit Reason for Visit: Hospital Course Hospital Course This is a 37-year-old that presented for repeat lower transverse . Upon arrival patient was found to have severe blood pressures started on magnesium for preeclampsia with severe features superimposed on chronic hypertension. Patient underwent repeat low-transverse without complication. Patient continued to have severe elevations of blood pressure and required multiple doses of IV blood pressure medications over the next 24 hours. Patient did have a decrease in urine output but this has improved. Information Peripartum Data: Infant Delivery Method: complications: none Physical Exam Const: COMMON NORMALS: no acute distress and alert HENMT: COMMON NORMALS: normocephalic and moist oral mucous membranes HEAD & SCALP: normocephalic Neck/C-Spine: COMMON NORMALS: full ROM, supple and no JVD Resp: COMMON NORMALS: normal respiratory effort Cardio: COMMON NORMALS: no JVD, regular rate and regular rhythm RATE: regular rate RHYTHM: regular rhythm GI: COMMON NORMALS: Soft to palpation PALPATION: Yes Soft to palpation Extremity: COMMON NORMALS: normal to inspection and no clubbing, cyanosis or edema Neuro: COMMON NORMALS: moves all extremities SENSORIUM/ORIENTATION: Yes alert MOTOR EXAM: 5/5 motor strength present throughout and Motor abnormalities not present DEEP TENDON REFLEXES: Right ankle reflex intensity grade: 3+ and Left ankle reflex intensity grade: 3+ Psych: COMMON NORMALS: mental status grossly normal and cooperative Skin: NARRATIVE SKIN EXAM: Incision clean dry and intact Urinary Catheter Management: Hardy: Cath Placed During This Visit: yes, but has since been removed by the nurse Reason for Continuing Indwelling Catheter: Decision to DC Catheter Urinary Catheter Date of Insertion: 04/06/23 Urinary Catheter Time of Insertion: 06:30 Date Urinary Catheter Removed: 04/07/23 Time Urinary Catheter Discontinued: 10:45 History History History 3 Term 2 0 Miscarriages/Ectopic 1 Living Children 2 Discharge Data Studies Completed and Pending Laboratory Results WBC 8.55 10^3/uL (3.29-11.43) 04/06/23 22:40 WBC 8.84 10^3/uL (3.29-11.43) 04/06/23 22:40 RBC 3.91 10^6/uL (3.85-5.65) 04/06/23 22:40 RBC 3.95 10^6/uL (3.85-5.65) 04/06/23 22:40 Hgb 11.90 g/dL (11.27-16.99) 04/06/23 22:40 Hgb 12.00 g/dL (11.27-16.99) 04/06/23 22:40 Hct 36.0 % (36-47) 04/06/23 22:40 Hct 36.3 % (36-47) 04/06/23 22:40 MCV 91.9 fl (85-98) 04/06/23 22:40 MCV 92.1 fl (85-98) 04/06/23 22:40 MCH 30.1 pg (27-33) 04/06/23 22:40 MCH 30.7 pg (27-33) 04/06/23 22:40 MCHC 32.8 g/dL (30-55) 04/06/23 22:40 MCHC 33.3 g/dL (30-55) 04/06/23 22:40 RDW 14.6 % (12.1-15.1) 04/06/23 22:40 RDW 14.6 % (12.1-15.1) 04/06/23 22:40 Plt Count 262 10^3/cmm (157-399) 04/06/23 22:40 Plt Count 266 10^3/cmm (157-399) 04/06/23 22:40 MPV 10.4 fL (7.4-10.4) 04/06/23 22:40 MPV 10.4 fL (7.4-10.4) 04/06/23 22:40 Neut % (Auto) 61.5 % 04/06/23 22:40 Lymph % (Auto) 27.6 % 04/06/23 22:40 [place] % (Auto) 7.8 % 04/06/23 22:40 Eos % (Auto) 1.9 % 04/06/23 22:40 Baso % (Auto) 0.9 % 04/06/23 22:40 Neut # (Auto) 5.43 10^3/uL (1.8-7.7) 04/06/23 22:40 Lymph # (Auto) 2.4 10^3/uL (0.8-4.8) 04/06/23 22:40 [place] # (Auto) 0.7 10^3/uL (0.2-0.9) 04/06/23 22:40 Eos # (Auto) 0.2 10^3/uL (0.0-0.8) 04/06/23 22:40 Baso # (Auto) 0.1 10^3/uL (0.0-0.1) 04/06/23 22:40 Nucleated RBC % (auto) 0 % 04/06/23 22:40 Nucleated RBCs # 0.0 /100WBC 04/06/23 22:40 Sodium 129 mmol/L (136-145) L 04/06/23 22:40 Potassium 4.4 mmol/L (3.5-5.1) 04/06/23 22:40 Chloride 99 mmol/L (98-107) 04/06/23 22:40 Carbon Dioxide 22 mmol/L (22-29) 04/06/23 22:40 Anion Gap 12.4 (5-19) 04/06/23 22:40 BUN 12 mg/dL (6-20) 04/06/23 22:40 Creatinine 0.6 mg/dL (0.5-0.9) 04/06/23 22:40 GFR Calculation 111.9 mL/min (90-130) 04/06/23 22:40 Glucose 96 mg/dL (65-115) 04/06/23 22:40 POC Glucose 190 mg/dL (70-110) H 04/07/23 21:01 Calculated Osmolality 268 mOsm/kg (285-295) L 04/06/23 22:40 Uric Acid 7.5 mg/dL (2.4-5.7) H 04/06/23 06:14 Calcium 7.2 mg/dL (8.5-10.5) L 04/06/23 22:40 Magnesium 5.5 mg/dL (5.0-7.5) 04/07/23 06:33 Total Bilirubin 0.2 mg/dL (0.15-1.2) 04/06/23 22:40 AST 26 U/L (0-32) 04/06/23 22:40 ALT 22 U/L (0-33) 04/06/23 22:40 Alkaline Phosphatase 315 U/L (35-105) H 04/06/23 22:40 Total Protein 5.6 g/dL (6.6-8.7) L 04/06/23 22:40 Albumin 2.9 g/dL (3.5-5.2) L 04/06/23 22:40 Globulin 2.7 g/dL (1.3-4.6) 04/06/23 22:40 Urine Color Yellow (Yellow) 04/06/23 05:20 Urine Appearance Clear (CLEAR) 04/06/23 05:20 Urine pH 6 (5-7) 04/06/23 05:20 Ur Specific [place] 1.020 (1.005-1.030) 04/06/23 05:20 Urine Protein 2+ (Negative) H 04/06/23 05:20 Urine Glucose (UA) Norm (Normal) 04/06/23 05:20 Urine Ketones Negative (Negative) 04/06/23 05:20 Urine Blood Neg (Negative) 04/06/23 05:20 Urine Nitrate Negative (Negative) 04/06/23 05:20 Urine Bilirubin Neg (Negative) 04/06/23 05:20 Urine Urobilinogen Neg mg/dL (Negative) 04/06/23 05:20 Ur Leukocyte Esterase Negative (Negative) 04/06/23 05:20 Urine RBC None /hpf (0-2) 04/06/23 05:20 Urine WBC 0-4 /hpf (0-5) H 04/06/23 05:20 Ur Squamous Epith Cells 5-10 /hpf (0-5) H 04/06/23 05:20 Amorphous Sediment Not Reportable 04/06/23 05:20 Urine Bacteria 2+ /hpf (NONE) H 04/06/23 05:20 Urine Mucus 1+ /hpf 04/06/23 05:20 Blood Type O Positive 04/06/23 05:35 Rho(D) Type Rh positive 01/12/24 05:35 Antibody Screen Negative 04/06/23 05:35 Vitals Last Vital Signs Temp 96.3 F L 04/08/23 05:05 Pulse 90 04/08/23 07:11 Resp 18 04/07/23 21:00 BP 158/86 04/08/23 07:11 Pulse Ox 95 04/06/23 09:15 O2 Del Method Room Air 04/06/23 09:15 Results Labs OB ([facility]): Obstetrics US/Biophysical Profile 03/08/23 Blood Type O Positive 04/06/23 Antibody Screen Negative 04/06/23 Hct 36.0 % (36-47) 04/06/23 Hgb 12.00 g/dL (11.27-16.99) 04/06/23 Rho(D) Type Rh positive 04/06/23 Plt Count 262 10^3/cmm (157-399) 04/06/23 Uric Acid 7.5 mg/dL (2.4-5.7) H 04/06/23 Discharge Plan Discharge Patient Disposition: Home Condition: Stable Prescriptions: Continued metformin 500 mg Tablet 500 mg PO 1XD glyburide 5 mg Tablet 5 mg PO 1XD labetalol 100 mg Tablet 300 mg PO BID escitalopram oxalate [Lexapro] 10 mg Tablet 10 mg PO DAILY Discharge Orders: Discharge Order (Routine); Ordered 04/08/23 Ordered By: Otto Alcaraz Referrals: Otto Alcaraz MD [Physician] - 1 week Discharge Diet: Usual diet and Diabetic Discharge Activity: Limit activity as instructed Patient Instructions: Depression (DC), Bleeding (DC), Preeclampsia and Eclampsia After Delivery (GEN), Hemorrhage (GEN), OB - Edyta/Micheal, OB Discharge Report, OB Food/Drug Interaction Guide, OB Care at Home, Opioid Safety, OB Home Care Discharge Attestations [employer] Time Spent in Discharge Care*: less than 30 min Coding Level of Care Code Acute Code for Chg Fwd Diagnoses Pre-eclampsia added to pre-existing hypertension O11.9 care following delivery Z39.2 Type 2 diabetes mellitus E11.9
[2023-04-08] MEDS: NIFEdipine ER (24 hr) 30 mg Tablet PO (10:08)
[2023-04-08] MEDS: HYDROcodone-acetaminophen 5-325 mg Tablet PO (10:08)
[2023-04-08] MEDS: docusate sodium 100 mg Capsule PO (10:09)
[2023-04-08] MEDS: ibuprofen 800 mg tablet PO (10:09)
== END 2023-04-08 11:18 | disposition home or self-care (01) | DRG 788 ==
PROVIDERS: Admitting Provider Family Medicine; Visit Provider Family Medicine
PROC: 10D00Z1 Extraction of Products of Conception, Low, Open Approach (ICD-10-PCS; CPT 59514; principal; 2023-04-06 06:40)
DX: O11.4 Pre-existing hypertension with pre-eclampsia, complicating childbirth (principal); Z3A.37 37 weeks gestation of pregnancy; O34.211 Maternal care for low transverse scar from previous cesarean delivery; Z37.0 Single live birth; O99.214 Obesity complicating childbirth; E66.01 Morbid (severe) obesity due to excess calories; O24.12 Pre-existing type 2 diabetes mellitus, in childbirth; Z79.84 Long term (current) use of oral hypoglycemic drugs
CPT/HCPCS: 36415; 36416; 51702; 59025; 59409; 80053; 81001; 82962; 83735; 84550; 85025; 85027; 86850; 86900; 96372; 96374; 96376; J0360; J1815; J1885; J2274; J2765; J3010; J3475; J3490; J7121

== ENCOUNTER 2023-04-28 16:32 | Emergency (ER) | payer MEDICAID, SELFPAY ==
[2023-04-28 16:37] VITALS: BP 154/108; PULSE 86; RESP 18; TEMP 37; O2SAT 97; BMI 40.7
--- NOTE | 2023-04-28 18:20 | W.ED.GENADLT ---
HPI - General Adult General: Chief complaint: General Medical Stated complaint: post bleeding Time Seen by Provider: 04/28/23 18:01 History of Present Illness: Mariann is a 37-year-old female that is 3 weeks status post section. She reports she has been doing well since the section but this morning noted drainage from her surgical site. The discharge is dark brown, has no odor. She denies redness at the site. Patient's medical history is depression, diabetes, hypertension Review of Systems General: Reports: 10 or more systems reviewed and unremarkable except in HPI and below PFSH ED PFSH: Medical History (Updated 04/28/23 @ 18:23 by YAO Sutart) Pre-eclampsia added to pre-existing hypertension Physical Exam Const: COMMON NORMALS: no acute distress, patient oriented x3 and alert GENERAL APPEARANCE: cooperative ORIENTATION/CONSCIOUSNESS: Yes awake HENMT: COMMON NORMALS: normocephalic and atraumatic HEAD & SCALP: normocephalic and atraumatic FACE & SINUS: normal facial exam MOUTH: Normal oral and palatal mucosa present THROAT: posterior oropharynx normal Eye: COMMON NORMALS: Equal, round and reactive pupils present, EOMs intact bilaterally, conjunctivae normal and no scleral icterus GENERAL EYE: appearance normal, both eyes and all related structures ALIGNMENT: Yes alignment normal PERIORBITAL: periorbital findings normal CONJUNCTIVA: Yes conjunctivae normal PUPIL: Yes Equal, round and reactive pupils present Neck/C-Spine: COMMON NORMALS: full ROM GENERAL: Yes normal visual inspection Lymph: LYMPHATIC: no lymphadenopathy noted Chest: COMMONS NORMALS: normal inspection of the chest Breast/axilla inspection: Yes no chest deformity, asymmetry, normal contours, no nodules, masses, tenderness Resp: COMMON NORMALS: normal respiratory effort, No retractions and No use of accessory muscles EFFORT & INSPECTION: Yes able to speak in complete sentences and Yes symmetric chest movement Cardio: COMMON NORMALS: regular rate and Peripheral pulses 2+ throughout RATE: regular rate PERIPHERAL PULSES: Peripheral pulses 2+ throughout GI: COMMON NORMALS: Normal to inspection, nondistended, normoactive bowel sounds present, Soft to palpation, non-tender and No hepatosplenomegaly present PALPATION: Yes Soft to palpation and Yes No hepatosplenomegaly present RECTAL EXAM: deferred OTHER: Horizontal scar without erythema or warmth. There are no sutures it is healed nicely except for pinpoint hole close to midline. There is what appears to be old blood draining from the site. It is dark brown but is more consistent with serous viscosity. There was no odor. No apparent purulence I was able to express approximately 50 cc Extremity: COMMON NORMALS: normal to inspection GENERAL: Yes normal exam except as noted Neuro: COMMON NORMALS: patient oriented x3 SENSORIUM/ORIENTATION: Yes alert CRANIAL NERVES: Yes CN normal except as noted Psych: COMMON NORMALS: mental status grossly normal, Normal thought process present, cooperative and activity/motor behavior normal THOUGHT PROCESS: Normal thought process present Skin: COMMON NORMALS: no rashes or lesions noted, no wounds and turgor normal GENERAL SKIN EXAM: no rashes or lesions noted and turgor normal Course Vital Signs: Vital signs: Vital Signs Temperature 98.6 F 04/28/23 16:37 Pulse Rate 86 04/28/23 16:37 Respiratory Rate 18 04/28/23 16:37 Blood Pressure 154/108 04/28/23 16:37 Pulse Oximetry 97 04/28/23 16:37 Oxygen Delivery Me thod Room Air 04/28/23 16:37 MDM - General Adult Medical Decision Making Patient was evaluated in the emergency department for surgical site drainage. There is no evidence of cellulitis and no apparent abscess. There is an area just superior to the skin surgical site that is hard this is possibly the uterine suture site and scarring. Patient has no abdominal pain not appear ill fevers or chills. Patient and I talked about treatment with antibiotics and at this time I do not think is warranted. The discharge is more consistent with blood. Follow-up with her [employer] ENGLISH INSTRUCTOR. Advised her to call Sunday. She is to return to the emergency department if she develops any recurrent drainage or if she develops any general fevers or chills, or redness or warmth to the area. Patient is agreeable No radiology studies performed this visit Discharge Plan Discharge Patient Disposition: Home Clinical Impression: Drainage from surgical wound, care following delivery Condition: Stable Prescriptions: No Action metformin 500 mg Tablet 500 mg PO 1XD glyburide 5 mg Tablet 5 mg PO 1XD labetalol 100 mg Tablet 300 mg PO BID escitalopram oxalate [Lexapro] 10 mg Tablet 10 mg PO DAILY Discharge Orders: Discharge ED (Routine); Ordered 02/03/24 Ordered By: Sienna Garcia Referrals: Otto Alcaraz MD [Primary Care Provider] - Discharge Diet: Advance as tolerated Discharge Activity: Resume usual activity Patient Instructions: Pain Management Activity Restrictions/Additional Instructions: You were evaluated today for drainage from your surgical site. The appearance of the drainage was old blood. Please follow-up with your ADJ[employer] ENGLISH INSTRUCTOR Sunday for further discussion. You are to follow-up with your primary care/OB/ER if you develop fever, chills, abdominal pain; you are to follow-up if you develop redness warmth and additional drainage from the site. Coding Level of Care Code ED Shirring Machine Operator for José Loredo
== END 2023-04-28 18:46 | disposition home or self-care (01) ==
PROVIDERS: Emergency Provider Nurse Practitioner; PCP Family Medicine
DX: O90.89 Other complications of the puerperium, not elsewhere classified (principal); Z79.84 Long term (current) use of oral hypoglycemic drugs
CPT/HCPCS: 99281